=== PATIENT | male | born 1995 | race American Indian/Alaskan Native ===

== ENCOUNTER 2016-08-20 06:07 | Day surgery (SDC) | payer OTHER ==
[2016-08-20] MEDS ORDERED: GELFOAM TP ONE ×2 (07:26→10:42)
[2016-08-20] MEDS ORDERED: FLOXIN OTIC ONE (07:26)
[2016-08-20] MEDS ORDERED: XYLOCAINE 2%/ EPI 1:50,000 (DENTAL) INFILTRATI ONE ×2 (07:26→10:44)
[2016-08-20] MEDS ORDERED: ADRENALIN ONE (07:27)
[2016-08-20] MEDS ORDERED: NACL 0.9% 1000 ML 1,000 ML ONE ×2 (08:07→10:34)
[2016-08-20] MEDS ORDERED: DIPRIVAN 10 MG/ML IV ONE ×2 (08:18→10:07)
[2016-08-20] MEDS ORDERED: XYLOCAINE MPF 2% ONE (08:18)
[2016-08-20] MEDS ORDERED: DECADRON ONE (08:19)
[2016-08-20] MEDS ORDERED: DILAUDID ONE ×2 (08:20→09:36)
[2016-08-20] MEDS ORDERED: ZOFRAN ONE ×2 (08:20→12:20)
--- NOTE | 2016-08-20 08:20 | Anesthesia Day of Surgery ---
Anesthesia Day of Surgery - Day of Surgery Patient Examined: Yes Patient H&P Reviewed: Yes Patient is NPO: Yes
--- NOTE | 2016-08-20 08:20 | Anesthesia Consultation ---
Anesthesia Consult and Med Hx Date of service: 08/20/16 - Airway Anesthetic Teeth Evaluation: Good ROM Head & Neck: Adequate Mental/Hyoid Distance: Adequate Mallampati Class: Class I Intubation Access Assessment: Good - Pulmonary Exam CTA: Yes - Cardiac Exam Cardiac Exam: RRR - Pre-Operative Health Status ASA Pre-Surgery Classification: ASA1 Proposed Anesthetic Plan: General - Central Nervous System Hx Psychiatric Problems: No - Gastrointestinal Hx Gastroesophageal Reflux Disease: Yes (with spicy food) - Other Systems Hx Cancer: No - Additional Comments Anesthesia Medical History Comments: decreased hearing in left ear. upper and lower permanent retainer. family history of cardiac problems and protein S deficiency.
[2016-08-20] MEDS ORDERED: CLEOCIN 600 MG/50 mL 600 MG/50 ML BAG IV NR (08:24)
[2016-08-20] MEDS ORDERED: VERSED IV NR (08:30)
[2016-08-20] MEDS ORDERED: NACL 0.9% 1000 ML 1,000 ML IV SCH (08:30)
[2016-08-20] MEDS ORDERED: PEPCID IV NR (08:31)
[2016-08-20] MEDS ORDERED: ZEMURON IV ONE (10:10)
[2016-08-20] MEDS ORDERED: NACL 0.9% IR ONE ×2 (10:43→10:44)
[2016-08-20] MEDS ORDERED: WATER FOR IRRIG STERILE IR ONE (10:43)
[2016-08-20] MEDS ORDERED: FLOXIN OTIC AS ONE (10:43)
[2016-08-20] MEDS ORDERED: ADRENALIN IV ONE (10:43)
[2016-08-20] MEDS ORDERED: DEMEROL ONE (12:15)
[2016-08-20] MEDS ORDERED: DEMEROL IV PRN (12:24)
[2016-08-20] MEDS ORDERED: ZOFRAN IV ONE (12:24)
--- NOTE | 2016-08-20 12:38 | Short Stay Summary ---
Short Stay Documentation Date of service: 08/20/16 - Allergies and Medications Current Medications: Allergies Penicillins Allergy (Verified 08/15/16 16:38) rash, vomiting Home Medications Medication Instructions Recorded Confirmed Last Taken Type No Known Home Medications [No 08/15/16 08/15/16 Unknown History Reported Home Medications] Active Medications Famotidine (Pepcid) 20 mg IV PREOP NR Stop: 08/20/16 23:59 Last Admin: 08/20/16 08:57 Dose: 20 mg Sodium Chloride (Nacl 0.9% 1000 Ml) 1,000 mls @ 100 mls/hr IV DIRECT BUD Stop: 08/20/16 23:59 Meperidine HCl (Demerol) 25 mg IV ONCE PRN PRN Reason: Shivering Midazolam HCl (Versed) 2 mg IV PREOP NR Stop: 08/20/16 23:59 Last Admin: 08/20/16 09:00 Dose: 2 mg Ondansetron HCl (Zofran) 4 mg IV ONCE ONE Stop: 08/20/16 12:25 - Brief post op/procedure progress note Date of procedure: 08/20/16 Pre-op diagnosis: Left middle ear mass. Conductive hearing loss, left ear. Post-op diagnosis: other (1. Left middle ear congenital cholesteatoma; 2. Partial loss of ossicles) Procedure: 1. Left tympanopalsty with excision of middle ear congenital cholesteatoma and with ossicular chain reconstruction using 5.5 mm total ossicular reconstruction prosthesis. 2. Microdissection using the operating microscope. Anesthesia: other (General via laryngeal mask anesthesia) Findings: Middle ear congenital cholesteatoma involving protympanum, mesotympanum, sinus tympani, with dehiscent tympanic segment of facial nerve, and with erosion of long process of incus and stapedial crura. Mobile stapes footplate. Surgeon: NATALY HALEY Estimated blood loss: minimal Pathology: list (Cholesteatoma was sent to pathology.) Specimen disposition: to lab Condition: stable - Disposition Condition at discharge: Good Disposition: DC-01 TO HOME OR SELFCARE Short Stay Discharge Plan Activity: advance as tolerated Diet: advance as tolerated Wound: per your surgeon's advice Follow up with: NATALY HALEY MD [Staff Physician] - 08/21/16
--- NOTE | 2016-08-20 12:52 | Post Anesthesia Evaluation ---
- Post Anesthesia Evaluation Patient Participated: Yes Airway Patent: Yes Stable Respiratory Function: Yes Nausea/Vomiting: No Temp > 96.8F: Yes Pain Manageable: Yes Adequeate Hydration: Yes Anesthesia Complications: No
[2016-08-20] MEDS ORDERED: PHENERGAN PO ONE (13:52)
[2016-08-20 14:14] VITALS: BP 136/80
--- NOTE | 2016-08-20 15:39 | Operative Report ---
PRINCIPAL DIAGNOSES: 1. Left congenital middle ear cholesteatoma. 2. Conductive hearing loss in the left ear. PRINCIPAL POSTOPERATIVE DIAGNOSES: 1. Left congenital middle ear cholesteatoma. 2. Partial loss of ossicles. PRINCIPAL SURGICAL PROCEDURES: 1. Left tympanoplasty with excision of congenital middle ear cholesteatoma with and without ossicular chain reconstruction using a 5.5 mm titanium total ossicular replacement prosthesis. 2. Microdissection using the operating microscope. SURGEON: Tamara Reyes MD ANESTHESIA: General via laryngeal mask anesthesia. COMPLICATIONS: None. SPECIMENS: Excised cholesteatoma was submitted to Pathology for permanent sectioning. ESTIMATED BLOOD LOSS: 5-7 mL of blood. INDICATION FOR SURGERY: The patient is a 21-year-old male who presented with a whitish mass located behind the middle ear and with conductive hearing loss in the left ear. CT scan demonstrated a soft tissue density at the inner middle ear suggestive of a mass, but with possible erosion of incus. A congenital cholesteatoma was suspected and excision was recommended with possible tympanoplasty and ossicular chain reconstruction. DESCRIPTION OF PROCEDURE: The patient was taken to the operating room and was placed on the operating table in supine position. After satisfactory plane of general anesthesia via laryngeal mask anesthesia was achieved, the head was gently turned to the right side exposing the left ear. Betadine was used to clean the retroauricular area and meatus. A total of 3.2 mL of 2% Xylocaine in 1:50,000 epinephrine was injected into the retroauricular area in lateral aspect of the external ear canal. Ear was then prepped and draped in the usual manner. Surgical procedure started with making a retroauricular skin incision through the skin and subcutaneous tissue to the plane of fascia covering temporalis muscles superiorly and periosteum covering mastoid inferiorly. Bleeding was stopped using Bovie cautery. Bovie cautery was used to a make a T-type incision in the periosteum with a horizontal incision along the temporal line, second incision perpendicular to it towards mastoid tip. Periosteal flaps were elevated anteriorly, posteriorly and superiorly. The external ear canal was identified. Skin line in posterior canal was elevated and incised from 6-12 o'clock using an 11 blade. Self-retaining retractors were inserted. Using the operating microscope, we then focused on the external ear canal and made 2 incisions in external auditory canal, one incision was placed at 6 o'clock and second one at 12 o'clock and tympanomeatal flap was elevated. Nares was elevated in posterior inferior quadrant and gradually elevated all the way to the neck of the malleus. Whitish mass was identified in the middle ear. We very gently from the tympanic membrane to which the disk cholesteatoma was not attached and then we used a micro elevator and gently started to mobilize the cholesteatoma and removed in a piecemeal fashion using simply suction because there was really no firm attachment to any of the surrounding structures. Cholesteatoma was either white or slightly yellowish and we were able to scuba it out from the mesotympanum from the protympanum from the sinus tympani area over window niche area and underneath the tensor tympani tendon and over the tympanic segment of the facial nerve. A portion of the scutum had to be removed. We identified the long process of incus was missing and both crura and head of the stapes were completely missing. Once the cholesteatoma was removed, we irrigated the entire area and no additional cholesteatoma material was identified. Chorda tympani was preserved throughout the entire procedure. The footplate of the stapes was mobile. We used a 5.5 mm titanium total ossicular replacement prosthesis or COURTNEY for reconstruction, placed it over the distal end of the prosthesis over the mobile footplate and the proximal end was placed underneath the tympanic membrane, but in between we placed a thin layer of conchal cartilage that was obtained to the same retroauricular incision and cut very thin with an 11 blade. We then laid tympanomeatal flap back against the posterior bony canal wall and packed external auditory canal with more Gelfoam soaked with ofloxacin. Periosteal flaps and subcutaneous layer of skin incisions were closed with 4-0 Vicryl and 5-0 fast-absorbing gut was used to close the skin incision. A Meche drain was used to drain the retroauricular incision. Mastoid dressing was applied. Following completion of the surgical procedure, the patient was extubated in the operating room and then transferred to recovery room in stable and satisfactory condition. [facility]# [id number] RAFAEL/MADINA
== END 2016-08-20 14:18 | disposition home or self-care (01) ==
LOC: OR 06:07
PROVIDERS: ATTEND Otolaryngology Sleep Medicine
DX: H71.92 Unspecified cholesteatoma, left ear (principal); H74.322 Partial loss of ear ossicles, left ear; K21.9 Gastro-esophageal reflux disease without esophagitis; Z88.0 Allergy status to penicillin
CPT/HCPCS: 69633; 88304; A4217; A4649; J0171; J1100; J1170; J2175; J2250; J2405; J2704; J7030; Q0169